=== PATIENT | male | born 1995 | race Caucasian/White ===

== ENCOUNTER 2017-01-30 12:34 | Emergency (ER) | payer OTHER ==
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
[2017-01-30 13:37] LABS: CHLORIDE,CL 105 mmol/L (101-111); SODIUM,NA 137 mmol/L (135-145)
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
== END 2017-01-30 15:22 | disposition home or self-care (01) ==
LOC: DL.ED 12:34
DX: S16.1XXA Strain of muscle, fascia and tendon at neck level, initial encounter (principal); V43.63XA Car passenger injured in collision with pick-up truck in traffic accident, initial encounter
CPT/HCPCS: 36415; 72040; 80053; 80305; 81001; 85025; 99284; G0480